=== PATIENT | male | born 1985 | race Caucasian/White ===

== ENCOUNTER 2023-05-04 03:17 | Emergency (ER) | payer MEDICAID ==
[2023-05-04 03:20] VITALS: PULSE 90
== END 2023-05-04 05:10 | disposition left against medical advice (07) ==
LOC: ER 03:35
DX: R07.9 Chest pain, unspecified (principal); Z53.21 Procedure and treatment not carried out due to patient leaving prior to being seen by health care provider
CPT/HCPCS: 99281